=== PATIENT | male | born 1980 | race American Indian/Alaskan Native ===

== ENCOUNTER 2019-05-13 04:15 | Emergency (ER) | payer MEDICAID ==
[2019-05-13] MEDS ORDERED: NORCO 5/325 PO ONE (08:11)
[2019-05-13] MEDS ORDERED: NORCO 5/325 ONE (08:14)
[2019-05-13 09:26] VITALS: BP 157/102
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
== END 2019-05-13 09:44 | disposition home or self-care (01) ==
LOC: ED 04:15
DX: H60.91 Unspecified otitis externa, right ear (principal); I10 Essential (primary) hypertension; F17.200 Nicotine dependence, unspecified, uncomplicated; F12.10 Cannabis abuse, uncomplicated
CPT/HCPCS: 99282